=== PATIENT | female | born 1980 | race Caucasian/White ===

== ENCOUNTER 2016-07-12 12:21 | Emergency (ER) | payer OTHER ==
[2016-07-12 12:34] VITALS: BP 120/69
--- NOTE | 2016-07-12 12:45 | UC ---
Abdominal Pain Female HPI - HPI Summary HPI Summary: The patient comes in today for: 1. Epigastric abdominal pain: Onset: 4 days. Palliative/provocative: Keeping moving and taking her mind off it helped. Leaning forward helps. Quality: sharp, burning. Region: Epigastric area. Severity: 7/10 Time: Comes in waves, but always there. Associated symptoms: Vomiting: First day--but none since then. Diarrhea: none. Fever: None. Pancreas problems: None known. Stomach disease: None. Weight loss: Usually weight is 145 pounds and now it is 120 pounds, but she states that her weight loss is from stress. Last BM: this AM and normal. It was floating. No blood, no melena. Previous treatment: None. Gallbladder: Has it, but no known problems. * - History of Current Complaint Chief Complaint: UCAbdominalPain Stated Complaint: UPPER ABD PAIN Time Seen by Provider: 07/12/16 12:37 Hx Obtained From: Patient Hx Last Menstrual Period: 06/29/16 ?: No Allergies/Adverse Reactions: Allergies Allergy/AdvReac Type Severity Reaction Status Date / Time Amoxicillin Allergy GI Upset Verified 07/12/16 12:28 Home Medications: Home Medications Multiple Vitamins W/ Minerals [Multivitamin Adult] 1 tab PO DAILY 07/12/16 [ History Confirmed 07/12/16] PMH/Surg Hx/FS Hx/Imm Hx Previously Healthy: No Endocrine History Of: Denies: Diabetes, Thyroid Disease, Hyperthyroidism, Hypothyroidism, Dyslipidemia Cardiovascular History Of: Denies: Cardiac Disorders, Hypertension, Pacemaker/ICD, Myocardial Infarction , Congestive Heart Failure, Atrial Fibrillation, Deep Vein Thrombosis, Bleeding Disorders Respiratory History Of: Denies: COPD, Asthma, Bronchitis, Pneumonia, Pulmonary Embolism GI/ History Of: Denies: Gastroesophageal Reflux, Ulcer, Gastrointestinal Bleed, Gall Bladder Disease, Kidney Stones, Diverticulitis, Renal Disease, Urosepsis Neurological History Of: Denies: TIA, CVA, Dementia, Seizures, Migraine Psychological History Of: Reports: Anxiety - No medications at this time. Denies: Depression, Bipolar Disorder, Schizophrenia, Post Traumatic Stress Disorder Cancer History Of: Denies: Lung Cancer, Colorectal Cancer, Breast Cancer, Prostate Cancer, Cervical Cancer Other History Of: Negative For: HIV, Hepatitis B, Hepatitis C, Anticoagulant Therapy - Surgical History Surgical History: None - Family History Known Family History: Positive: Cardiac Disease Negative: Hypertension - Social History Occupation: Employed Full-time Alcohol Use: None Substance Use Type: None Substance Use Comment - 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 Smoking Status (MU): Heavy Every Day Tobacco Smoker Type: Cigarettes Amount Used/How Often: 1 PPD Length of Time of Smoking/Using Tobacco: 14 years Have You Smoked in the Last Year: No Household Exposure Type: Cigarettes - Immunization History Most Recent Tetanus Shot: 2010 Review of Systems Constitutional: Negative Skin: Negative Eyes: Negative ENT: Negative Respiratory: Negative Cardiovascular: Negative Gastrointestinal: Abdominal Pain Genitourinary: Negative All Other Systems Reviewed And Are Negative: Yes Physical Exam Triage Information Reviewed: Yes Appearance: Well-Appearing, No Pain Distress, Well-Nourished, Thin Vital Signs: Initial Vital Signs Temp 98.8 F 07/12/16 12:29 Pulse 73 07/12/16 12:29 Resp 16 07/12/16 12:29 BP 120/69 07/12/16 12:29 Pulse Ox 100 07/12/16 12:29 Vital Signs Reviewed: Yes Eyes: Positive: Conjunctiva Clear. Negative: Discharge ENT: Positive: Hearing grossly normal. Negative: Pharyngeal erythema, Nasal drainage, TM bulging, TM dull, TM red, Tonsillar swelling, Tonsillar exudate Dental: Negative: Gross Decay/Caries @, Dental Fracture @ Neck: Positive: Supple, Nontender, No Lymphadenopathy. Negative: Nuchal Rigidity Respiratory: Positive: Chest non-tender, Lungs clear, No respiratory distress, No accessory muscle use. Negative: Crackles, Wheezing Cardiovascular: Positive: RRR, No Murmur Abdomen Description: Positive: No Organomegaly, Guarding - Guarding?, Peritoneal Signs. Negative: Nontender - She has tenderness of the epigastric and LUQ area, but the epigastric area is worse. She has rebound tenderness over the epigastric area as well as percussion tenderness., Distended Musculoskeletal: Positive: Strength Intact, ROM Intact Neurological: Positive: Alert, Muscle Tone Normal Psychological: Positive: Age Appropriate Behavior. Negative: Consolable Skin: Negative: rashes, breakdown Abd Pain Female Course/Dx - Course Course Of Treatment: Patient told that I was concerned that she had pancreatitis and recommended ER. She said she would go via private car. - Differential Dx/Diagnosis Provider Diagnoses: Epigastric abdominal pain (pancreatitis) - Physician Notification/Consults Discussed Patient Care With: Lisa Javed Discharge - Discharge Plan Condition: Stable Disposition: AGAINST MEDICAL ADVICE Additional Instructions: Please go directly to the ER at [facility] for further evaluation.
== END 2016-07-12 13:10 | disposition left against medical advice (07) ==
LOC: UCEAST 12:21
DX: R10.13 Epigastric pain (principal); F17.210 Nicotine dependence, cigarettes, uncomplicated
CPT/HCPCS: 99212; G0463

== ENCOUNTER 2016-07-12 14:16 | Emergency (ER) | payer OTHER ==
[2016-07-12 15:52] VITALS: BP 119/71
== END 2016-07-12 16:13 | disposition left against medical advice (07) ==
LOC: ED 14:16
DX: R10.9 Unspecified abdominal pain (principal); Z53.21 Procedure and treatment not carried out due to patient leaving prior to being seen by health care provider

== ENCOUNTER 2017-07-30 11:49 | Emergency (ER) | payer OTHER ==
--- OUTSIDE RECORDS SUMMARY | 2017-07-30 11:57 | XMS REPORT ---
:1980 External Reference #:[id number] Author Organization [facility] Address [address] [address] Phone [phone] Care Team Providers Name Role Phone Jac Martinez MD Primary Care Physician Unavailable Payers Type Date Identification Numbers Payment Provider Subscriber Commercial Policy Number: [id number] Poncho Anjana Mcdonough PayID: [id number] [address] [place] [address] Problems Date Description Provider Status Onset: 07/23/2017 Opiate misuse Jac Martinez M.D.,FACP Active Onset: 07/23/2017 Anxiety disorder Jac Martinez M.D.,FACP Active Family History Date Family Member(s) Problem(s) Comments Father Alive and well Social History Type Date Description Comments Smoking Light tobacco smoker (10 or fewer cigarettes/day) Allergies, Adverse Reactions, Alerts Date Description Reaction Status Severity Comments 07/23/2017 Azithromycin Nausea and Vomiting active Moderate Medications Medication Date Status Form Strength Qnty SIG Indications Ordering Provider Suboxone 07/24/19 Active Film 8-2mg 42units 1 strip in Jac 18 Am and 1/2 Dayday Martinez, strip in Venkatesh.Dayday,FACP PM Gabapentin 07/24/19 Active Capsules 100mg 180caps 1 po qid Jac 18 for 4d, Dayday Martinez, then 2 po M.D.,FACP qid for 4d, then 3 qid for 4d,then 4 qid ongoing Suboxone / Hx Film 12-3mg 1 sl tab Unknown 00 - daily 07/24/19 18 Vital Signs Date Vital Result Comment 07/23/2017 Height 67.5 inches 5'7.50" Weight 150.00 lb Heart Rate 77 /min BP Systolic Sitting 100 mmHg BP Diastolic Sitting 68 mmHg Body Temperature 97.6 F O2 % BldC Oximetry 97 % BMI (Body Mass Index) 23.1 kg/m2 Results Description No Information Procedures Description No Information Encounters Type Date Location Provider CPT E/M Dx Office Visit 07/23/2017 [facility] Internal Medicine Jac Martinez, [id number] F11.21 2:20p - Cyrus Kimball,FACP F41.9 Plan of Care No Information Available
[2017-07-30 12:03] VITALS: BP 108/67
[2017-07-30] MEDS ORDERED: Ibuprofen TAB* 400 MG PO ONE (12:11)
--- NOTE | 2017-07-30 12:16 | UC ---
FLU HPI - HPI Summary HPI Summary: 37 y/o female presents to the urgent care c/o productive cough w/ yellowish discharge, fever, GARZA, body aches, nasal congestion, B/L ear pain since yesterday. Pt thinks she has the flu. Temp has been up to 104 the first time. She felt dizzy this morning when she stands up from a sitting position. She feel fatigue today. Pain is 6/10 and she has taking Tylenol Po to alleviate symptoms. LMP:07/09/2017. Pt denies SOB, wheezing, chest pain, abdominal pain, N/V /D. - History of Current Complaint Chief Complaint: UCGeneralIllness Stated Complaint: FEVER, ACHES Time Seen by Provider: 07/30/17 12:10 Hx Obtained From: Patient Hx Last Menstrual Period: 07/09/2017 ?: No Onset/Duration: Gradual Onset, Lasting Days - 2 days, Still Present, Worse Since - today Severity Currently: Mild Severity Initially: Moderate Pain Intensity: 5 Pain Scale Used: 0-10 Numeric Associated Signs & Symptoms: Positive: Fever, T Max - 104F yesterday, Myalgia, Cough, Sore Throat, Nasal Congestion, Headache - Risk Factors Influenza Risk Factors: Negative - Allergy/Home Medications Allergies/Adverse Reactions: Allergies Allergy/AdvReac Type Severity Reaction Status Date / Time amoxicillin AdvReac GI Upset Verified 07/30/17 11:59 Home Medications: Home Medications Buprenorphine HCl/Naloxone HCl [Suboxone 4 mg-1 mg Sl Film] 1 each SL TID [History Confirmed 07/30/17] PMH/Surg Hx/FS Hx/Imm Hx Previously Healthy: Yes - Pt denies PMHX Other History Of: Negative For: HIV, Hepatitis B, Hepatitis C, Anticoagulant Therapy - Surgical History Surgical History: None - Family History Known Family History: Positive: Cardiac Disease Negative: Hypertension - Social History Occupation: Employed Full-time Lives: With Family Alcohol Use: None Substance Use Type: None Substance Use Comment - 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 Smoking Status (MU): Heavy Every Day Tobacco Smoker Type: Cigarettes Amount Used/How Often: 1/2 PPD Length of Time of Smoking/Using Tobacco: Since Ager 17 Have You Smoked in the Last Year: No Household Exposure Type: Cigarettes - Immunization History Most Recent Tetanus Shot: 12/16/12 Review of Systems Constitutional: Fever, Chills, Fatigue, Other - body aches Skin: Negative Eyes: Negative ENT: Sore Throat, Ear Ache - B/L ear pain, Nasal Discharge, Sinus Congestion, Sinus Pain/Tenderness Respiratory: Cough - productive w/ yellowish, Other - wheezing Cardiovascular: Negative Gastrointestinal: Negative Genitourinary: Negative Motor: Negative Neurovascular: Negative Musculoskeletal: Negative Neurological: Headache Psychological: Negative Is Patient Immunocompromised?: No All Other Systems Reviewed And Are Negative: Yes Physical Exam - Summary Physical Exam Summary: Vital Signs Reviewed: Yes General: well developed, well nourished female sitting in the examining table w/ o any apparent distress Eyes: Positive: Conjunctiva Clear - PERRLA, EOMI, fundi grossly normal ENT: Positive: Normal ENT inspection, Hearing grossly normal, Pharynx mild erythema, no exudate, Nasal congestion - edematous and erythematous nasal mucosa , Nasal drainage - yellowish drainage, TMs normal. Negative: Tonsillar swelling , Tonsillar exudate Neck: Positive: Supple, Nontender, No Lymphadenopathy, no meningeal signs Respiratory: no orthopnea or dyspnea. Able to speak in full sentences, no retractions or accessory muscle use, no tripod position, stridor, or head bobbing. CTA bilaterally, no wheezing, no rhonchi, no rales, no crackles. Cardiovascular: Positive: RRR, No Murmur, Pulses Normal, Brisk Capillary Refill Abdomen Description: Positive: Nontender, No Organomegaly, Soft. Negative: CVA Tenderness (R), CVA Tenderness (L) Bowel Sounds: Positive: Present Musculoskeletal Exam: Normal Musculoskeletal: Positive: Strength Intact, ROM Intact, No Edema Neurological Exam: Normal Psychological Exam: Normal Skin Exam: Normal Triage Information Reviewed: Yes Vital Signs: Initial Vital Signs Temp 102.8 F 07/30/17 11:57 Pulse 108 07/30/17 11:57 Resp 18 07/30/17 11:57 BP 108/67 07/30/17 11:57 Pulse Ox 99 07/30/17 11:57 Flu Course/Dx - Course Course Of Treatment: 37 y/o female presents to the urgent care c/o productive cough w/ yellowish discharge, fever, GARZA, body aches, nasal congestion, B/L ear pain since yesterday. Pt thinks she has the flu. Temp has been up to 104 the first time. She felt dizzy this morning when she stands up from a sitting position. She feel fatigue today. Pain is 6/10 and she has taking Tylenol PO to alleviate symptoms. LMP:07/09/2017. Pt denies SOB, wheezing, chest pain, abdominal pain, N/V/D.Hx obtained. Pt w/ a viral syndrome on examination. RApdi strep ordered: negative, Influenza A&B ordered: negative. Pt febrile 102.8F Pt given Iuprofen PO 800mg for fever. Temp decrease 100.7F. Chest X-ray ordered: no cardiopulmonary disease observed. Pt Rx ibuprofen PO to alleviates symptoms. Advised on hand washing. Pt advised to rest, increase fluid intake, eat well and avoid strenuous exercise. If symptoms do not improve or worsen advised to return to the urgent care or f/u with her PCP for further evaluation and treatment. Pt understood and agreed with plan of care. Pt left the clinic ambulating and hemodynamically stable and feeling better. - Differential Dx/Diagnosis Differential Diagnosis/HQI/PQRI: Bronchitis, Influenza, Pneumonia, Upper Respiratory Infection Provider Diagnoses: 1- Viral syndrome. 2-fever Discharge - Sign-Out/Discharge Documenting (check all that apply): Discharge/Admit/Transfer - D/C home - Discharge Plan Condition: Stable Disposition: HOME Prescriptions: Ibuprofen TAB* [Motrin TAB* 800 MG] 800 mg PO Q6H PRN #30 tab PRN Reason: Fever Patient Education Materials: Viral Syndrome (ED) Referrals: Non Staff,Doctor [Primary Care Provider] - Additional Instructions: 1-Please take ibuprofen/Tylenol PO q6-8hrs prn as instructed after meals to alleviate pain and swelling. Increase fluid intake, eat well, rest and avoid strenuous exercise 2-If symptoms do not improve in 2-3 days or worsen please return to the urgent care or f/u with your PCP for further evaluation and treatment. 3- If your develop severe fever w/ abdominal pain, neck pain, or vomiting please go immediately to the ER for further treatment - Billing Disposition and Condition Condition: STABLE Disposition: HOME
--- NOTE | 2017-07-30 13:02 | RAD ---
INDICATION: Productive cough and fever. COMPARISON: Comparison is made with a prior study from June 20, 2013. TECHNIQUE: Dual-energy PA and lateral views of the chest were obtained. FINDINGS: The heart is within normal limits in size. Mediastinal and hilar contours appear within normal limits. The lungs are clear. No pleural effusion is present. There is a mild dorsal scoliosis convex toward the right side. IMPRESSION: NO EVIDENCE FOR ACTIVE CARDIOPULMONARY DISEASE.
== END 2017-07-30 13:31 | disposition home or self-care (01) ==
LOC: UCCORT 11:49
DX: B34.9 Viral infection, unspecified (principal); R50.9 Fever, unspecified; F17.210 Nicotine dependence, cigarettes, uncomplicated; Z88.3 Allergy status to other anti-infective agents
CPT/HCPCS: 71046; 87502; 87651; 99212; A9270-GY; G0463

== ENCOUNTER 2017-08-10 21:05 | Emergency (ER) | payer OTHER ==
[2017-08-10 21:52] VITALS: BP 107/71
[2017-08-10] MEDS ORDERED: Cephalexin CAP* 500 MG PO ONE (22:16)
--- NOTE | 2017-08-10 22:16 | UC ---
Skin Complaint HPI - HPI Summary HPI Summary: C/O redness swelling warmth and pain in front of the left ear. No fever. - History of Current Complaint Chief Complaint: UCSkin Time Seen by Provider: 08/10/17 22:08 Stated Complaint: LEFT EAR SWOLLEN Hx Obtained From: Patient Hx Last Menstrual Period: 08/03/17 ?: No Onset/Duration: Sudden Onset - today, Worse Since - this morning Skin Exposure Onset/Duration: Hours Ago - 12 Onset Severity: Mild Current Severity: Moderate Pain Intensity: 7 Location: Ear (Left) Character: Redness, Raised, Painful Aggravating Factor(s): Nothing Alleviating Factor(s): Nothing Associated Signs & Symptoms: Negative: Nausea, Vomiting, Difficulty Breathing, Fever, Chills, Cough - Allergy/Home Medications Allergies/Adverse Reactions: Allergies Allergy/AdvReac Type Severity Reaction Status Date / Time amoxicillin AdvReac GI Upset Verified 08/10/17 21:47 Review of Systems Skin: Other - redness and swelling on the left side of the face. 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 Smoking Status (MU): Heavy Every Day Tobacco Smoker Type: Cigarettes Amount Used/How Often: 1/2 PPD Length of Time of Smoking/Using Tobacco: Since Ager 17 Have You Smoked in the Last Year: No Household Exposure Type: Cigarettes - Immunization History Most Recent Tetanus Shot: 12/16/12 Physical Exam Triage Information Reviewed: Yes Appearance: Well-Appearing, No Pain Distress, Well-Nourished Vital Signs: Initial Vital Signs Temp 99.9 F 08/10/17 21:48 Pulse 97 08/10/17 21:48 Resp 16 08/10/17 21:48 BP 107/71 08/10/17 21:48 Pulse Ox 97 08/10/17 21:48 Vital Signs Reviewed: Yes Eyes: Positive: Conjunctiva Clear ENT: Positive: Pharynx normal, TMs normal Neck exam: Normal Respiratory Exam: Normal Cardiovascular Exam: Normal Musculoskeletal Exam: Normal Neurological Exam: Normal Psychological Exam: Normal Skin: Positive: Other - erythema, warmth and swelling left side of face into the ear. Course/Dx - Differential Diagnoses - Skin Complaint Differential Diagnoses: Abscess, Cellulitis, MRSA - Diagnoses Provider Diagnoses: Cellulitis face Discharge - Sign-Out/Discharge Documenting (check all that apply): Discharge/Admit/Transfer - Discharge Plan Condition: Stable Disposition: HOME Prescriptions: Cephalexin CAP* [Keflex 500 CAP*] 500 mg PO QID #28 cap Patient Education Materials: Cellulitis (ED), Cephalexin (By mouth) Referrals: Jac Martinez MD [Primary Care Provider] - Additional Instructions: Hot packs can be helpful. If getting worse go to the ER. - Billing Disposition and Condition Condition: STABLE Disposition: HOME
== END 2017-08-10 22:29 | disposition home or self-care (01) ==
LOC: UCCORT 21:05
DX: L03.211 Cellulitis of face (principal); Z88.0 Allergy status to penicillin; F17.210 Nicotine dependence, cigarettes, uncomplicated
CPT/HCPCS: 99212; A9270-GY; G0463

== ENCOUNTER 2019-03-02 16:39 | Emergency (ER) | payer OTHER | END 2019-03-02 16:40 | disposition left against medical advice (07) | LOC: UCCORT 16:39 | DX: Z53.21 Procedure and treatment not carried out due to patient leaving prior to being seen by health care provider (principal) | CPT/HCPCS: 99211; G0463 ==

== ENCOUNTER 2019-10-29 08:25 | Inpatient (IN) ==
[2019-10-29] MEDS ORDERED: Penicillin G Potassium IV 5,000,000 UNITS in NS 0.9% 100 ml BAG 100 ML IVPB ONE (08:42)
[2019-10-29] MEDS ORDERED: Lactated Ringers 1000 ml BAG 1,000 ML IV ONE (08:42)
[2019-10-29 10:06] LABS: ABS Basophils 0.1 10^3/ul (0-0.2); ABS Eosinophils 0.3 10^3/ul (0-0.6); ABS Lymphocytes 2.2 10^3/ul (1.0-4.8); ABS Monocytes 0.7 10^3/ul (0-0.8); Eosinophil % 2.6 %; Hematocrit 31 % (35-47); Hemoglobin 10.9 g/dL (12.0-16.0); Lymphocyte % 22.5 %; Mean Corpuscular HGB Conc 35 g/dL (31-36); Mean Corpuscular Hemoglobin 31 pg (27-31); Mean Corpuscular Volume 90 fL (80-97); Mean Platelet Volume 8.1 fL (7.4-10.4); Nucleated Red Blood Cells % 0.1; Platelet Count 267 10^3/uL (150-450); Red Blood Count 3.46 10^6 /uL (3.70-4.87); Red Cell Distribution Width 13 % (10-15)
[2019-10-29 10:30] LABS: Urine Benzodiazepine Screen None Detected (None Detect); Urine Opiates Screen None Detected (None Detect)
[2019-10-29] MEDS: Penicillin G Potassium IV 3,000,000 UNITS in NS 0.9% 100 ml BAG 100 ML IVPB SCH ×3 (13:28→21:30)
[2019-10-29] MEDS: Nicotine GUM 2MG FRUIT FLAVOR PO PRN ×2 (13:29→19:28)
[2019-10-29] MEDS: Nicotine PATCH 21 MG/24 HR PATCH TRANSDERM SCH (15:51)
[2019-10-29] MEDS ORDERED: Lactated Ringers 1000 ml BAG 1,000 ML IV SCH (16:00)
[2019-10-29] MEDS ORDERED: Oxytocin in LR 20 UNITS/1,000 ML BAG IVPB SCH (16:00)
[2019-10-29] MEDS ORDERED: Buprenorphine 2 mg SL TAB SL SCH (16:00)
[2019-10-29] MEDS: Buprenorphine 2 mg SL TAB SL SCH (20:01)
[2019-10-29] MEDS ORDERED: OBEPIDURAL 250 ML EPIDURAL ONE (23:42)
[2019-10-30] MEDS: Nicotine GUM 2MG FRUIT FLAVOR PO PRN ×2 (00:35→10:30)
[2019-10-30] MEDS ORDERED: Lactated Ringers 1000 ml BAG 1,000 ML IV ONE (00:46)
[2019-10-30] MEDS ORDERED: Sodium Citrate/Citric Acid LIQ 15 ML UDC PO PRN (00:46)
[2019-10-30] MEDS ORDERED: EPHEDrine (Pressors) 50 MG/ML VIAL IV PUSH PRN ×2 (00:46)
[2019-10-30] MEDS ORDERED: Phenylephrine 40 mcg/mL 10mL (400mcg) SYRINGE IV PUSH PRN ×2 (00:46)
[2019-10-30] MEDS ORDERED: OBEPIDURAL 250 ML EPIDURAL SCH (01:00)
[2019-10-30] MEDS ORDERED: Lactated Ringers 1000 ml BAG 1,000 ML IV SCH ×2 (01:00→03:00)
[2019-10-30] MEDS: Penicillin G Potassium IV 3,000,000 UNITS in NS 0.9% 100 ml BAG 100 ML IVPB SCH (01:50)
[2019-10-30] MEDS ORDERED: Dibucaine 1% OINT 28.35 GM TUBE PR PRN (02:57)
[2019-10-30] MEDS ORDERED: RHO D Immune Globulin (HUMAN) 300 MCG = 1,500 I.U. INJ IM ONE (02:57)
[2019-10-30] MEDS ORDERED: Witch Hazel PAD JAR TOPICAL PRN (02:57)
[2019-10-30] MEDS ORDERED: Oxytocin in LR 20 UNITS/1,000 ML BAG IVPB SCH (03:00)
[2019-10-30] MEDS ORDERED: Methylergonovine 0.2 mg AMPULE 1 ml AMP IM ONE (03:41)
[2019-10-30] MEDS ORDERED: ceFAZolin 2 GM PREMIX 2 GM/50 ML BAG IVPB ONE (03:41)
[2019-10-30] MEDS ORDERED: Lidocaine 1% VIAL 10 MG/ML VIAL ONE (05:02)
[2019-10-30] MEDS: Nicotine PATCH 21 MG/24 HR PATCH TRANSDERM SCH (09:00)
[2019-10-30] MEDS: Buprenorphine 2 mg SL TAB SL SCH (19:46)
[2019-10-31] MEDS: Nicotine PATCH 21 MG/24 HR PATCH TRANSDERM SCH (07:55)
[2019-10-31 09:41] LABS: ABS Basophils 0.1 10^3/ul (0-0.2); ABS Eosinophils 0.3 10^3/ul (0-0.6); ABS Lymphocytes 2.6 10^3/ul (1.0-4.8); ABS Monocytes 0.3 10^3/ul (0-0.8); Eosinophil % 3.3 %; Hematocrit 24 % (35-47); Hemoglobin 8.4 g/dL (12.0-16.0); Lymphocyte % 31.7 %; Mean Corpuscular HGB Conc 35 g/dL (31-36); Mean Corpuscular Hemoglobin 31 pg (27-31); Mean Corpuscular Volume 89 fL (80-97); Mean Platelet Volume 7.3 fL (7.4-10.4); Platelet Count 230 10^3/uL (150-450); Red Blood Count 2.69 10^6 /uL (3.70-4.87); Red Cell Distribution Width 13 % (10-15); White Blood Count 8.1 10^3/uL (3.5-10.8)
[2019-10-31] MEDS: Buprenorphine 2 mg SL TAB SL SCH (20:02)
[2019-11-01 07:39] LABS: ABS Basophils 0.1 10^3/ul (0-0.2); ABS Eosinophils 0.2 10^3/ul (0-0.6); ABS Lymphocytes 2.2 10^3/ul (1.0-4.8); ABS Monocytes 0.3 10^3/ul (0-0.8); Eosinophil % 3.3 %; Hematocrit 23 % (35-47); Hemoglobin 8.1 g/dL (12.0-16.0); Lymphocyte % 36.7 %; Mean Corpuscular HGB Conc 35 g/dL (31-36); Mean Corpuscular Hemoglobin 31 pg (27-31); Mean Corpuscular Volume 89 fL (80-97); Mean Platelet Volume 6.9 fL (7.4-10.4); Platelet Count 246 10^3/uL (150-450); Red Cell Distribution Width 13 % (10-15); White Blood Count 6.1 10^3/uL (3.5-10.8)
[2019-11-01] MEDS: Nicotine PATCH 21 MG/24 HR PATCH TRANSDERM SCH (09:00)
[2019-11-01 19:35] VITALS: BP 108/64
[2019-11-01] MEDS: Buprenorphine 2 mg SL TAB SL SCH (20:40)
== END 2019-11-01 22:30 | disposition home or self-care (01) | DRG 560 ==
LOC: MCHOBOUT 08:25 → MCHOB 09:45
PROVIDERS: ADMIT Midwife; ATTEND Midwife